=== PATIENT | male | born 1960 | race Caucasian/White ===

== ENCOUNTER 2018-01-04 10:34 | Day surgery (SDC) | payer OTHER ==
[2018-01-04] MEDS ORDERED: LR 1,000 ML IV ONE (11:06)
[2018-01-04] MEDS ORDERED: ceFAZolin 2 GM/DEXTROSE 100 ML IV ONE (11:21)
--- NOTE | 2018-01-04 11:23 | PDANEPAE ---
ANE Past Medical History - Cardiovascular History Hx Hypertension: Yes Hx Arrhythmias: No Hx Chest Pain: No Hx Coronary Artery / Peripheral Vascular Disease: No Hx CHF / Valvular Disease: No Hx Palpitations: No - Pulmonary History Hx COPD: No Hx Asthma/Reactive Airway Disease: No Hx Recent Upper Respiratory Infection: No Hx Oxygen in Use at Home: No Hx Sleep Apnea: No Sleep Apnea Screening Result - Last Documented: Positive - Neurologic History Hx Cerebrovascular Accident: No Hx Seizures: No Hx Dementia: No - Endocrine History Hx Diabetes: No - Renal History Hx Renal Disorders: Yes Renal History Comment: bph - Liver History Hx Hepatic Disorders: No - Neurological & Psychiatric Hx Hx Neurological and Psychiatric Disorders: No - Cancer History Hx Cancer: No - Congenital Disorder History Hx Congenital Disorders: No - GI History Hx Gastrointestinal Disorders: Yes Gastrointestinal History Comment: hemorrhoids - Other Health History Other Health History: [facility] - Chronic Pain History Chronic Pain: No - Surgical History Prior Surgeries: hemorrhoidectomy ANE Review of Systems Review of Systems: - Exercise capacity METS (RN): 6 METS ANE Patient History - Allergies Allergies/Adverse Reactions: No Known Allergies Allergy (Verified 12/26/17 15:11) - Home Medications Home Medications: Lisinopril 12/26/17 [Last Taken 01/04/18] Tamsulosin HCl 12/26/17 [Last Taken 01/04/18] - NPO status NPO Since - Liquids (Date): 01/04/18 NPO Since - Liquids (Time): 08:30 NPO Since - Solids (Date): 01/03/18 NPO Since - Solids (Time): 20:00 - Smoking Hx Smoking Status: Never smoked - Family Anes Hx Family Hx Anesthesia Complications: none ANE Labs/Vital Signs - Vital Signs Blood Pressure: 146/86 Heart Rate: 60 Respiratory Rate: 19 O2 Sat (%): 99 Height: 182.88 cm Weight: 65.771 kg ANE Physical Exam - Airway Mallampati Score: Class 2 - ASA Status ASA Status: II ANE Anesthesia Plan Anesthesia Plan: GA w LMA
--- NOTE | 2018-01-04 11:23 | PDHPUP ---
History & Physical Update H&P update statement: This history and physical update is based on an assessment of the patient which was completed after admission or registration (within 24 hours), but prior to the surgery/procedure. H&P update: H&P reviewed & patient examined, no change in patient's condition since H&P completed
[2018-01-04] MEDS ORDERED: LR 1,000 ML IV SCH (11:30)
[2018-01-04] MEDS ORDERED: MIDAZOLAM 2 MG/2 ML VIAL ONE (11:31)
[2018-01-04] MEDS ORDERED: fentaNYL 100 MCG/2 ML INJ ONE (11:31)
[2018-01-04] MEDS ORDERED: ONDANSETRON 4 MG/2 ML VIAL ONE (11:32)
[2018-01-04] MEDS ORDERED: LIDOCAINE 2% JELLY 5 ML TUBE ONE (11:32)
[2018-01-04] MEDS ORDERED: PROPOFOL 200 MG/20 ML VIAL ONE (11:32)
[2018-01-04] MEDS ORDERED: METOCLOPRAMIDE 10 MG/2 ML VIAL ONE (11:32)
[2018-01-04] MEDS ORDERED: EPINEPHrine 1 MG/ML INJ ONE (11:37)
[2018-01-04] MEDS ORDERED: BUPIVACAINE 0.25% 30 ML SDV ONE (11:37)
[2018-01-04] MEDS ORDERED: BACITRACIN ZINC 14.2 GM OINTTUBE TP ONE (11:37)
--- NOTE | 2018-01-04 12:23 | POSTOPPROG ---
Post Op Note Date of Operation: 01/04/18 Surgeon: Desmond Domingo (, FACS) Anesthesia: GET(General Endotracheal) Pre-op Diagnosis: hemorrhoids Procedure: hemorrhoidectomy, 2 columns Inf/Abcess present in the surg proc area at time of surgery?: No EBL: Minimal (5ml) Specimen(s): right posterolateral and left lateral hemorrhoids
[2018-01-04] MEDS ORDERED: OXYCODONE/APAP 5/325 TAB PO PRN (12:24)
[2018-01-04] MEDS ORDERED: ONDANSETRON DISINTEGRATING 4 MG TAB PO PRN (12:24)
[2018-01-04] MEDS ORDERED: HYDROmorphONE/DILAUDID 1 MG/ML INJ IVP PRN (12:24)
[2018-01-04] MEDS ORDERED: LR 500 ML IV PRN (12:24)
[2018-01-04] MEDS ORDERED: NALOXONE HCL 0.4 MG/ML INJ IVP PRN (12:24)
[2018-01-04] MEDS ORDERED: PROMETHAZINE HCL 25 MG/ML INJ IVP PRN (12:24)
[2018-01-04] MEDS ORDERED: fentaNYL 100 MCG/2 ML INJ IVP PRN (12:24)
--- NOTE | 2018-01-04 12:25 | POSTANESTH ---
Post Anesthetic Evaluation Cardiovascular Status: Normal, Stable Respiratory Status: Normal, Stable Level of Consciousness/Mental Status: Can Participate in Eval Pain Control: Adequate, Prn Tx Ordered Nausea/Vomiting Control: Adequate, Prn Tx Ordered Complications Possibly Related to Anesthesia: None Noted
--- NOTE | 2018-01-04 13:06 | GOP ---
[f rep st] OPERATIVE REPORT DATE OF OPERATION: 01/04/2018 SURGEON: Desmond Domingo MD ANESTHESIA: General by laryngeal mask. ANESTHESIOLOGIST: Renan Del Valle MD. PREOPERATIVE DIAGNOSIS: Bleeding and prolapsing mixed hemorrhoids. POSTOPERATIVE DIAGNOSIS: Bleeding and prolapsing mixed hemorrhoids. PROCEDURE PERFORMED: Hemorrhoidectomy, 2 column excision. FINDINGS: Grade 4 right posterolateral and left lateral hemorrhoids without active bleeding. ESTIMATED BLOOD LOSS: 5 cc. DESCRIPTION OF PROCEDURE: After informed consent was obtained, the patient was brought to the operat ing room and placed under general anesthesia. He was positioned in lithotomy and the peritoneum was prepped and draped in usual fashion. Before proceeding, a time-out identification of the patient was performed. Digital exam was performed followed by anoscopy revealing the rather large prolapsing right posterola teral and left posterolateral hemorrhoids. There were minimal grade 1 internal hemorrhoids in the an terior position of the anal canal. The LigaSure was then used to perform hemorrhoidectomy excising t he anoderm, the dilated external and internal hemorrhoidal veins as well as overlying rectal mucosa i n multiple sequential bites taking care to avoid injury to the underlying internal sphincter muscle. Each of these excisions extended 2 cm above the dentate line and included a portion of the anoderm. The right side was performed 1st followed by the left. In both instances there was minimal bleeding . There was a smaller grade 1-2 internal hemorrhoid in the right anterior position that was left unt reated. Hemostasis appeared secure. Topical bacitracin ointment was applied. Patient was extubated and brought to the recovery room in satisfactory condition. Needle, sponge, and instrument count we re correct. COMPLICATIONS: None. /[id number]/MODL
[2018-01-04 14:00] VITALS: BP 104/74
== END 2018-01-04 13:52 | disposition home or self-care (01) ==
LOC: FSGY 10:34
PROVIDERS: ATTEND Surgery
PROC: 06BY0ZC Excision of Hemorrhoidal Plexus, Open Approach (ICD-10-PCS; principal; 2018-01-04 12:00)
DX: K64.3 Fourth degree hemorrhoids (principal); K64.8 Other hemorrhoids; I10 Essential (primary) hypertension; N35.9 Urethral stricture, unspecified; N40.0 Benign prostatic hyperplasia without lower urinary tract symptoms; Z87.891 Personal history of nicotine dependence
CPT/HCPCS: J0171; J0690; J2250; J2405; J2704; J2765; J3010